=== PATIENT | male | born 1955 | race Two or more races ===

== ENCOUNTER 2021-10-28 06:12 | Day surgery (SDC) | payer OTHER ==
[~2021-10-28] VITALS: Ht 177.8 cm; Wt 81.6 kg
== END 2021-10-28 11:55 | disposition home or self-care (01) ==
LOC: CIR.AMB 06:12
PROVIDERS: ATTEND Specialist
DX: D17.21 Benign lipomatous neoplasm of skin and subcutaneous tissue of right arm (principal); I10 Essential (primary) hypertension; Z86.16 Personal history of COVID-19; Z20.822 Contact with and (suspected) exposure to COVID-19